=== PATIENT | female | born 1960 | race Caucasian/White ===

== ENCOUNTER → 2016-10-24 | Outpatient (CLI) | payer MEDICARE ==
--- NOTE | 2016-10-24 15:22 | RADIOLOGY REPORT PS360 ---
KNEE-4 OR 5 VIEWS-RT HISTORY: Right knee pain VITOR KNEE PAIN ORDERING PHYSICIAN: Abhay Zuñiga MD PATIENT AGE: 55 years FINDINGS: Weightbearing views are performed. There are moderate to severe osteoarthritic change of the medial compartment and patellofemoral joint. This progressed compared to the previous study of 04/07/2012. No fracture or dislocation. No lytic or blastic change. IMPRESSION: Moderate to severe osteoarthritic change of the right knee
--- NOTE | 2016-10-24 15:23 | RADIOLOGY REPORT PS360 ---
KNEE-4 OR 5 VIEWS-LT HISTORY: VITOR KNEE PAIN ORDERING PHYSICIAN: Abhay Zuñiga MD PATIENT AGE: 55 years COMPARISON: 06/04/2012 FINDINGS: There are moderate to severe osteoarthritic changes of the medial compartment and patellofemoral joint. There is some subchondral lucency and cortical irregularity the medial femoral condyle. No fracture or dislocation. No lytic or blastic change. IMPRESSION: Moderate to severe osteoarthritis of the left knee. There is some cortical irregularity with subchondral lucency of the medial femoral condyle suggesting osteochondrosis
== END ==
LOC: RAD 13:29
DX: M25.562 Pain in left knee (principal); M25.561 Pain in right knee

== ENCOUNTER → 2016-10-29 | Outpatient (CLI) | payer MEDICARE ==
[2016-10-29 15:09] LABS: HEMOGLOBIN 12.7 g/dL (12.2-16.2); LYMPH # 2.3 K/mm3 (0.7-4.5); LYMPH % 31.8 % (10-50.0)
[2016-10-29 16:09] LABS: BUN 32 mg/dL (7-18)
[2016-10-29 16:18] LABS: GFR (ESTIMATED) 31 ML/MIN (59-)
== END ==
LOC: LAB 14:39
PROVIDERS: Surgery
DX: L02.11 Cutaneous abscess of neck (principal); Z01.810 Encounter for preprocedural cardiovascular examination; Z01.811 Encounter for preprocedural respiratory examination; Z01.812 Encounter for preprocedural laboratory examination

== ENCOUNTER 2016-11-08 08:35 | Day surgery (SDC) | payer MEDICARE ==
[~2016-11-08] VITALS: Ht 162.6 cm; Wt 117.9 kg
--- NOTE | 2016-11-08 11:39 | Operative Note ---
Surgeon/Diagnoses Surgeon/Garbage Collector Driver(s) Date of procedure: 11/08/16 Surgeon: MD Daniele Villalobos Diagnoses Pre-op diagnosis: Small recently abscessed cysts (x3) along the LEFT lateral neck (entire excision 4cm) Post-op diagnosis Same Procedure Procedure Procedure: Excision of recently abscessed cysts (3) along LEFT lateral neck - total excision 4 cm Indications: [place] is a 55 year-old Female with a history of recently abscessed cyst along LEFT lateral neck. Evaluation reveals 3 adjacent cysts that were all recently abscessed. Findings: All 3 cysts excised as a single 4 cm specimen Procedure Description: After informed consent was obtained, the patient was taken to the operating room and placed in the supine position. General anesthesia was induced and her LEFT neck was prepped and draped in a sterile fashion. After infiltration with local anesthetic an elliptical incision was made around the entire lesion. Electrocautery was utilized to transect through the deeper tissue. Entire specimen was passed off for pathologic evaluation. Electrocautery was utilized to achieve hemostasis. Central portion of the wound was reapproximated with interrupted 4-0 nylon. The lateral and medial margins were packed with gauze. Dressings were applied and the patient was transferred to recovery in stable condition after extubation. EBL (ml): 5 Anesthesia: General Complications: No immediate Specimens: 3 adjacent recently abscessed cysts along LEFT lateral neck Disposition Disposition: Stable to recovery from where she will be discharged home. She will follow-up in one week. She will begin twice-daily dressing changes tomorrow. at [id number]
--- NOTE | 2016-11-08 11:51 | Anesthesia Record ---
Anesthesia Record Part I Total IV fluids: 500 EBL (ml): 5 Urine Output: 0 B/P: 154/79 % SaO2: 92 Pulse: 72 Resps: 16 Temp: 98.3 Patient is: Drowsy, Nasal O2, Stable Stable to PACU at: 1140 at 1151
--- NOTE | 2016-11-08 11:52 | Anesthesia Record ---
Anesthesia Record Part II Discharge time: 1210 Destination: Same day surgery PACU nurse assessment review? Yes Patient is: Stable Anesthesia complications? No at 1151
[2016-11-08 15:38] VITALS: BP 138/63
== END 2016-11-08 13:30 | disposition home or self-care (01) ==
LOC: SDC 08:35
PROVIDERS: Surgery
PROC: 0HB4XZZ Excision of Neck Skin, External Approach (ICD-10-PCS; principal; 2016-11-08 10:30)
DX: L72.8 Other follicular cysts of the skin and subcutaneous tissue (principal); E11.9 Type 2 diabetes mellitus without complications; R20.8 Other disturbances of skin sensation
CPT/HCPCS: J0330; J2405

== ENCOUNTER → 2016-11-17 | Outpatient (CLI) | payer MEDICARE ==
[~2016-11-17] MED LIST: AMLODIPINE10 MG PO; ATENOLOL50 MG PO; CYCLOBENZAPRINE10 MG PO; DIAZEPAM10 MG PO; FLUOXETINE40 MG PO; FLUTICASONE 50M16 GM; FUROSEMIDE40 MG PO; GABAPENTIN300 MG PO; HUMALOG MIX75/253 ML SC; HYDROCODONE-APA1 TA2 PO; JARDIANCE25 MG PO; KLOR-CON M2020 MEQ PO; LEVOTHYROXINE0.05 MG NG; LIPITOR80 MG PO; LOVAZA1 GM PO; MAG-OX 400MG T400 MG PO; METFORMIN1000 MG PO; METOCLOPRAMIDE10 M2 PO; OCUVITE TABLET1 EACH PO; PHENYTOIN 100M100 MG PO; PREPARATION H HYDR1% TP; PRILOSEC20 M1 PO; TRAZODONE 50MG50 MG PO; TRICOR 145 MG145 MG NG; VALSARTAN AND H1 TA4 PO; WOMEN'S 50 PLU1 EACH PO; ZETIA10 MG PO
[2016-11-17 08:55] VITALS: BP 171/83
== END ==
LOC: COP 08:00
DX: L72.8 Other follicular cysts of the skin and subcutaneous tissue (principal); Z48.01 Encounter for change or removal of surgical wound dressing
CPT/HCPCS: G0463

== ENCOUNTER 2016-11-18 09:10 | Outpatient (CLI) | payer MEDICARE ==
[2016-11-18 09:10] VITALS: BP 174/87
[2016-11-19] MEDS ORDERED: AMLODIPINE10 MG PO (10:48)
[2016-11-19] MEDS ORDERED: VALSARTAN AND H1 TA4 PO (10:49)
[2016-11-19] MEDS ORDERED: PREPARATION H HYDR1% TP (10:50)
[2016-11-19] MEDS ORDERED: TRAZODONE 50MG50 MG PO (10:51)
[2016-11-19] MEDS ORDERED: KLOR-CON M2020 MEQ PO (10:52)
[2016-11-19] MEDS ORDERED: OCUVITE TABLET1 EACH PO (10:58)
[2016-11-19] MEDS ORDERED: WOMEN'S 50 PLU1 EACH PO (10:59)
[2016-11-19] MEDS ORDERED: MAG-OX 400MG T400 MG PO (10:59)
[2016-11-19] MEDS ORDERED: FLUTICASONE 50M16 GM (11:00)
[2016-11-19] MEDS ORDERED: HYDROCODONE-APA1 TA2 PO (11:01)
[2016-11-19] MEDS ORDERED: LEVOTHYROXINE0.05 MG NG (11:02)
[2016-11-19] MEDS ORDERED: GABAPENTIN300 MG PO (11:02)
[2016-11-19] MEDS ORDERED: HUMALOG MIX75/253 ML SC (11:03)
[2016-11-19] MEDS ORDERED: METFORMIN1000 MG PO (11:04)
[2016-11-19] MEDS ORDERED: JARDIANCE25 MG PO (11:04)
[2016-11-19] MEDS ORDERED: DIAZEPAM10 MG PO (11:05)
[2016-11-19] MEDS ORDERED: ZETIA10 MG PO (11:05)
[2016-11-19] MEDS ORDERED: LOVAZA1 GM PO (11:06)
[2016-11-19] MEDS ORDERED: LIPITOR80 MG PO (11:06)
[2016-11-19] MEDS ORDERED: TRICOR 145 MG145 MG NG (11:07)
[2016-11-19] MEDS ORDERED: PHENYTOIN 100M100 MG PO (11:08)
[2016-11-19] MEDS ORDERED: FLUOXETINE40 MG PO (11:08)
[2016-11-19] MEDS ORDERED: PRILOSEC20 M1 PO (11:09)
[2016-11-19] MEDS ORDERED: CYCLOBENZAPRINE10 MG PO (11:10)
[2016-11-19] MEDS ORDERED: METOCLOPRAMIDE10 M2 PO (11:10)
[2016-11-19] MEDS ORDERED: ATENOLOL50 MG PO (11:11)
[2016-11-19] MEDS ORDERED: FUROSEMIDE40 MG PO (11:12)
== END 2016-11-18 09:25 | disposition home or self-care (01) ==
LOC: COP 09:10
DX: L72.8 Other follicular cysts of the skin and subcutaneous tissue (principal); Z48.01 Encounter for change or removal of surgical wound dressing
CPT/HCPCS: G0463

== ENCOUNTER 2016-11-19 09:20 | Outpatient (CLI) | payer MEDICARE ==
[2016-11-19 09:30] VITALS: BP 189/79
[2016-11-19] MEDS ORDERED: AMLODIPINE10 MG PO (10:48)
[2016-11-19] MEDS ORDERED: VALSARTAN AND H1 TA4 PO (10:49)
[2016-11-19] MEDS ORDERED: PREPARATION H HYDR1% TP (10:50)
[2016-11-19] MEDS ORDERED: TRAZODONE 50MG50 MG PO (10:51)
[2016-11-19] MEDS ORDERED: KLOR-CON M2020 MEQ PO (10:52)
[2016-11-19] MEDS ORDERED: OCUVITE TABLET1 EACH PO (10:58)
[2016-11-19] MEDS ORDERED: MAG-OX 400MG T400 MG PO (10:59)
[2016-11-19] MEDS ORDERED: WOMEN'S 50 PLU1 EACH PO (10:59)
[2016-11-19] MEDS ORDERED: FLUTICASONE 50M16 GM (11:00)
[2016-11-19] MEDS ORDERED: HYDROCODONE-APA1 TA2 PO (11:01)
[2016-11-19] MEDS ORDERED: GABAPENTIN300 MG PO (11:02)
[2016-11-19] MEDS ORDERED: LEVOTHYROXINE0.05 MG NG (11:02)
[2016-11-19] MEDS ORDERED: HUMALOG MIX75/253 ML SC (11:03)
[2016-11-19] MEDS ORDERED: JARDIANCE25 MG PO (11:04)
[2016-11-19] MEDS ORDERED: METFORMIN1000 MG PO (11:04)
[2016-11-19] MEDS ORDERED: ZETIA10 MG PO (11:05)
[2016-11-19] MEDS ORDERED: DIAZEPAM10 MG PO (11:05)
[2016-11-19] MEDS ORDERED: LOVAZA1 GM PO (11:06)
[2016-11-19] MEDS ORDERED: LIPITOR80 MG PO (11:06)
[2016-11-19] MEDS ORDERED: TRICOR 145 MG145 MG NG (11:07)
[2016-11-19] MEDS ORDERED: FLUOXETINE40 MG PO (11:08)
[2016-11-19] MEDS ORDERED: PHENYTOIN 100M100 MG PO (11:08)
[2016-11-19] MEDS ORDERED: PRILOSEC20 M1 PO (11:09)
[2016-11-19] MEDS ORDERED: CYCLOBENZAPRINE10 MG PO (11:10)
[2016-11-19] MEDS ORDERED: METOCLOPRAMIDE10 M2 PO (11:10)
[2016-11-19] MEDS ORDERED: ATENOLOL50 MG PO (11:11)
[2016-11-19] MEDS ORDERED: FUROSEMIDE40 MG PO (11:12)
== END 2016-11-19 09:40 | disposition home or self-care (01) ==
LOC: COP 09:20
DX: L72.8 Other follicular cysts of the skin and subcutaneous tissue (principal); Z48.01 Encounter for change or removal of surgical wound dressing
CPT/HCPCS: G0463

== ENCOUNTER 2016-11-21 08:45 | Outpatient (CLI) | payer MEDICARE | END 2016-11-21 09:30 | disposition home or self-care (01) | LOC: COP 08:45 | DX: L72.8 Other follicular cysts of the skin and subcutaneous tissue (principal); Z48.01 Encounter for change or removal of surgical wound dressing | CPT/HCPCS: G0463 ==

== ENCOUNTER 2016-11-22 09:10 | Outpatient (CLI) | payer MEDICARE | END 2016-11-22 09:45 | disposition home or self-care (01) | LOC: COP 09:10 | DX: L72.8 Other follicular cysts of the skin and subcutaneous tissue (principal); Z48.01 Encounter for change or removal of surgical wound dressing | CPT/HCPCS: G0463 ==

== ENCOUNTER 2016-11-23 08:54 | Outpatient (CLI) | payer MEDICARE | END 2016-11-23 09:30 | disposition home or self-care (01) | LOC: COP 08:54 | DX: L72.8 Other follicular cysts of the skin and subcutaneous tissue (principal); Z48.01 Encounter for change or removal of surgical wound dressing | CPT/HCPCS: G0463 ==

== ENCOUNTER 2016-11-24 09:14 | Outpatient (CLI) | payer MEDICARE | END 2016-11-24 09:35 | disposition home or self-care (01) | LOC: COP 09:14 | DX: L72.8 Other follicular cysts of the skin and subcutaneous tissue (principal); Z48.01 Encounter for change or removal of surgical wound dressing | CPT/HCPCS: G0463 ==

== ENCOUNTER 2016-11-25 08:20 | Outpatient (CLI) | payer MEDICARE | END 2016-11-25 09:00 | disposition home or self-care (01) | LOC: COP 08:20 | DX: L72.8 Other follicular cysts of the skin and subcutaneous tissue (principal); Z48.01 Encounter for change or removal of surgical wound dressing ==

== ENCOUNTER 2016-11-26 09:24 | Outpatient (CLI) | payer MEDICARE | END 2016-11-26 09:50 | disposition home or self-care (01) | LOC: COP 09:24 | DX: L72.8 Other follicular cysts of the skin and subcutaneous tissue (principal); Z48.01 Encounter for change or removal of surgical wound dressing | CPT/HCPCS: G0463 ==

== ENCOUNTER → 2016-11-27 | Outpatient (CLI) | payer MEDICARE | LOC: COP 08:42 | DX: L72.8 Other follicular cysts of the skin and subcutaneous tissue (principal); Z48.01 Encounter for change or removal of surgical wound dressing | CPT/HCPCS: G0463 ==

== ENCOUNTER 2016-11-29 09:20 | Outpatient (CLI) | payer MEDICARE | END 2016-11-29 09:35 | disposition home or self-care (01) | LOC: COP 09:20 | DX: L72.8 Other follicular cysts of the skin and subcutaneous tissue (principal); Z48.01 Encounter for change or removal of surgical wound dressing | CPT/HCPCS: G0463 ==

== ENCOUNTER → 2016-11-30 | Outpatient (CLI) | payer MEDICARE ==
[2016-11-30 09:15] VITALS: BP 160/74
== END ==
LOC: COP 09:00
DX: L72.8 Other follicular cysts of the skin and subcutaneous tissue (principal); Z48.01 Encounter for change or removal of surgical wound dressing
CPT/HCPCS: G0463

== ENCOUNTER → 2016-12-01 | Outpatient (CLI) | payer MEDICARE ==
[2016-12-01 09:45] VITALS: BP 172/74
== END ==
LOC: COP 09:00
DX: L72.8 Other follicular cysts of the skin and subcutaneous tissue (principal); Z48.01 Encounter for change or removal of surgical wound dressing
CPT/HCPCS: G0463

== ENCOUNTER 2016-12-02 08:35 | Outpatient (CLI) | payer MEDICARE ==
[2016-12-02 08:35] VITALS: BP 135/69
== END 2016-12-02 08:50 | disposition home or self-care (01) ==
LOC: COP 08:35
DX: L72.8 Other follicular cysts of the skin and subcutaneous tissue (principal); Z48.01 Encounter for change or removal of surgical wound dressing
CPT/HCPCS: G0463

== ENCOUNTER 2016-12-03 08:55 | Outpatient (CLI) | payer MEDICARE | END 2016-12-03 09:10 | disposition home or self-care (01) | LOC: COP 08:55 | DX: L72.8 Other follicular cysts of the skin and subcutaneous tissue (principal); Z48.01 Encounter for change or removal of surgical wound dressing | CPT/HCPCS: G0463 ==